=== PATIENT | male | born 1960 | race Caucasian/White ===

== ENCOUNTER 2017-07-20 17:43 | Observation (INO) | payer OTHER ==
--- NOTE | 2017-07-20 18:20 | ED PDOC ---
HPI: Chest Pain Time Seen by Provider: 07/20/17 18:17 Chief Complaint (Nursing): Chest Pain Chief Complaint (Provider): CHEST PAIN History Per: Patient (56 Y/O MALE H/O HLD HERE WITH COMPLAINT OF PALPITATIONS ASSOCIATED WITH CHEST PRESSURE TODAY 1 HOUR PRIOR TO ED ARRIVAL. PATIENT STATES HE WAS LEANING FORWARD WHEN HE NOTED PAIN IN LOWER BACK THAT CAUSED HIM TO FEEL NEAR SYNCOPAL. PATIENT SUBSEQUENTLY NOTED PALPITATIONS AND CHEST PRESSURE.) Past Medical History Reviewed: Historical Data, Nursing Documentation, Vital Signs Vital Signs: Last Vital Signs Temp 98.6 F 07/20/17 17:51 Pulse 78 07/20/17 17:51 Resp 18 07/20/17 17:51 BP 100/69 07/20/17 17:51 Pulse Ox 98 07/20/17 18:20 - Medical History PMH: Hypercholesterolemia, Hyperlipidemia - Family History Family History: States: Unknown Family Hx - Immunization History Hx Tetanus Toxoid Vaccination: No Hx Influenza Vaccination: No Hx Pneumococcal Vaccination: No - Home Medications Home Medications: Ambulatory Orders Medication Instructions Recorded Cyclobenzaprine [Cyclobenzaprine 10 mg PO TID PRN #15 tab 08/14/15 HCl] Ibuprofen 1 tab PO Q6H PRN #15 tablet 08/14/15 [id number] Ethyl Esters 1 GM 1 gm PO BID 08/14/15 [Lovaza] - Allergies Allergies/Adverse Reactions: Allergies Allergy/AdvReac Type Severity Reaction Status Date / Time No Known Allergies Allergy Verified 07/20/17 17:51 Review of Systems ROS Statement: Except As Marked, All Systems Reviewed And Found Negative Cardiovascular: Positive for: Chest Pain Physical Exam - Reviewed Nursing Documentation Reviewed: Yes Vital Signs Reviewed: Yes - Physical Exam Appears: Positive for: Well, Non-toxic, No Acute Distress Head Exam: Positive for: ATRAUMATIC, NORMAL INSPECTION, NORMOCEPHALIC Skin: Positive for: Normal Color, Warm, DRY Eye Exam: Positive for: EOMI, Normal appearance, PERRL ENT: Positive for: Normal ENT Inspection Neck: Positive for: Normal, Painless ROM Cardiovascular/Chest: Positive for: Regular Rate, Rhythm Respiratory: Positive for: CNT, Normal Breath Sounds Gastrointestinal/Abdominal: Positive for: Normal Exam, Soft Back: Positive for: Normal Inspection Extremity: Positive for: Normal ROM Neurologic/Psych: Positive for: Alert, Oriented - Laboratory Results Result Diagrams: 07/20/17 18:30 07/20/17 18:30 - ECG ECG Rhythm: Positive for: Sinus Rhythm (NSR 73 BPM NO ECTOPY NO ACUTE CHANGES) O2 Sat by Pulse Oximetry: 98 - Progress ED Course And Treament: PATIENT TOOK ASA 81 MG X 2 PRIOR TO ED ARRIVAL. 162 MG ASA ORDERED D/W DR. VILLA ADMIT TO TELE OBSERVATION Disposition - Disposition Forms: [employer] (Bengali)
[2017-07-20 18:46] LABS: BLOOD UREA NITROGEN 18 mg/dl (9-20); CALCIUM 9.1 mg/dL (8.4-10.2); GFR AFRICAN-AMERICAN > 60; GFR NON-AFRICAN AMERICAN > 60
[2017-07-20 18:53] LABS: BASO % 0.4 % (0.0-2.0); EOS # 0.2 K/uL (0.0-0.7); EOS % 2.1 % (0.0-4.0); HEMOGLOBIN 14.5 g/dL (12.0-18.0); LYMPH # 2.3 K/uL (1.0-4.3); LYMPH % 30.5 % (20.0-40.0); MEAN CELL VOLUME 82.7 fl (80.0-94.0); MEAN CORPUSCULAR HEMOGLOBIN 27.9 pg (27.0-31.0); MEAN CORPUSCULAR HGB CONC 33.7 g/dL (33.0-37.0); MEAN PLATELET VOLUME 7.2 fl (7.2-11.7); MONO # 0.6 K/uL (0.0-0.8); MONO % 8.3 % (0.0-10.0); NEUT # 4.4 K/uL (1.8-7.0); NEUT % 58.7 % (50.0-75.0); NRBC % 0.1 % (0.0-0.0); RBC 5.21 Mil/uL (4.40-5.90); RED CELL DISTRIBUTION WIDTH 14.9 % (11.5-14.5); WHITE BLOOD COUNT 7.5 K/uL (4.8-10.8)
[2017-07-21] MEDS: Omega-3-Acid Ethyl Esters 1 GM Cap PO SCH ×2 (08:22→16:28)
--- NOTE | 2017-07-21 09:06 | RAD ---
HISTORY: PALPITATIONS COMPARISON: No prior. FINDINGS: LUNGS: No active pulmonary disease. PLEURA: No significant pleural effusion identified, no pneumothorax apparent. CARDIOVASCULAR: Atherosclerotic aortic calcifications. Cardiomediastinal thin normal limits. OSSEOUS STRUCTURES: Degenerative changes. VISUALIZED UPPER ABDOMEN: Normal. OTHER FINDINGS: None. IMPRESSION: No active disease.
--- NOTE | 2017-07-21 10:16 | CARD ---
APPROVED REPORT EKG Measurement Heart [id number] <Conclusion> Normal sinus rhythm Normal ECG
--- NOTE | 2017-07-21 10:33 | CARD ---
APPROVED REPORT EKG Measurement Heart [id number] <Conclusion> Normal sinus rhythm Normal ECG
[2017-07-21 11:28] LABS: HDL CHOLESTEROL 20 MG/DL (30-70)
[2017-07-21 11:39] LABS: LDL CHOLESTEROL 118 mg/dL (0-129)
--- NOTE | 2017-07-21 12:38 | CP.PCM.HP ---
History of Present Illness - History of Present Illness History of Present Illness: CC: chest pain HPI: 56 y/o man w/ pmh of HLD presented to the Ed w/ chest pain. Patient reported midsternal chest pressure 1 hour prior to arrival in ED. Patient reports he had just finished a short walk with a friend when the chest pain started. Patient also reported associated palpitation and near syncope. Patient noted that near syncope occurred after leaning forward due to lower back pain. Patient reports this is the 4th incident regarding chest pain for which he was previously seen in [facility]. Patient reports stress test done 3 years ago which was normal. Patient denies headaches, SOB, abdominal pain, nausea, vomiting, diarrhea, dysuria, or fever. PMD: Dr. Edward PMH: HLD meds: see med list PSH: left arm and right wrist surgery Fam: denies SOC: denies smoking, alcohol, and drugs ROS: 12 points assessed and negative unless otherwise reported in HPI Present on Admission - Present on Admission Any Indicators Present on Admission: No History of DVT/PE: No History of Uncontrolled Diabetes: No Urinary Catheter: No Review of Systems - Review of Systems All systems: reviewed and no additional remarkable complaints except - Constitutional Constitutional: absent: Chills, Fever - EENT Eyes: absent: Change in Vision - Cardiovascular Cardiovascular: As Per HPI, Chest Pain, Palpitations - Respiratory Respiratory: absent: Cough, Dyspnea - Gastrointestinal Gastrointestinal: absent: Abdominal Pain, Diarrhea, Nausea, Vomiting - Genitourinary Genitourinary: absent: Dysuria - Integumentary Integumentary: absent: Rash Past Patient History - Infectious Disease Hx of Infectious Diseases: None - Past Medical History & Family History Past Medical History?: Yes - Past Social History Smoking Status: Never Smoked - CARDIAC Hx Hypercholesterolemia: Yes - MUSCULOSKELETAL/RHEUMATOLOGICAL Hx Falls: No - PSYCHIATRIC Hx Substance Use: No - SURGICAL HISTORY Hx Surgeries: Yes Other/Comment: left arm surgery and right wrist due to carpal tunnel. - ANESTHESIA Hx Anesthesia: Yes Hx Anesthesia Reactions: No Meds Allergies/Adverse Reactions: Allergies Allergy/AdvReac Type Severity Reaction Status Date / Time No Known Allergies Allergy Verified 07/20/17 17:51 Physical Exam - Constitutional Appears: Non-toxic, No Acute Distress - Head Exam Head Exam: ATRAUMATIC, NORMAL INSPECTION, NORMOCEPHALIC - Eye Exam Eye Exam: Normal appearance - ENT Exam ENT Exam: Mucous Membranes Moist - Neck Exam Neck exam: Positive for: Full Rom. Negative for: Tenderness - Respiratory Exam Respiratory Exam: Clear to Auscultation Bilateral. absent: Accessory Muscle Use , Decreased Breath Sounds, Rales, Rhonchi, Wheezes, Respiratory Distress - Cardiovascular Exam Cardiovascular Exam: REGULAR RHYTHM, RRR. absent: Tachycardia, Systolic Murmur - GI/Abdominal Exam GI & Abdominal Exam: Normal Bowel Sounds, Soft. absent: Distended, Tenderness - Extremities Exam Extremities exam: Positive for: normal inspection. Negative for: calf tenderness, pedal edema - Neurological Exam Neurological exam: Alert, Oriented x3 - Skin Skin Exam: Dry, Intact, Normal Color, Warm Results - Vital Signs Recent Vital Signs: Last Vital Signs Temp 97.5 F L 07/21/17 08:04 Pulse 67 07/21/17 08:04 Resp 18 07/21/17 08:04 BP 100/65 07/21/17 08:04 Pulse Ox 96 07/21/17 08:04 - Labs Result Diagrams: 07/20/17 18:30 07/20/17 18:30 Labs: Laboratory Results - last 24 hr 07/20/17 07/20/17 07/21/17 18:30 18:30 01:45 WBC 7.5 RBC 5.21 Hgb 14.5 Hct 43.1 MCV 82.7 MCH 27.9 MCHC 33.7 RDW 14.9 H Plt Count 213 MPV 7.2 Neut % (Auto) 58.7 Lymph % (Auto) 30.5 [place] % (Auto) 8.3 Eos % (Auto) 2.1 Baso % (Auto) 0.4 Neut # (Auto) 4.4 Lymph # (Auto) 2.3 [place] # (Auto) 0.6 Eos # (Auto) 0.2 Baso # (Auto) 0.0 Sodium 138 Potassium 4.2 Chloride 104 Carbon Dioxide 25 Anion Gap 13 BUN 18 Creatinine 1.0 Est GFR ( Amer) > 60 Est GFR (Non-Af Amer) > 60 Random Glucose 89 Calcium 9.1 Magnesium 1.8 Troponin I < 0.0120 < 0.0120 Triglycerides Cholesterol LDL Cholesterol Direct HDL Cholesterol 07/21/17 07/21/17 09:55 11:16 WBC RBC Hgb Hct MCV MCH MCHC RDW Plt Count MPV Neut % (Auto) Lymph % (Auto) [place] % (Auto) Eos % (Auto) Baso % (Auto) Neut # (Auto) Lymph # (Auto) [place] # (Auto) Eos # (Auto) Baso # (Auto) Sodium Potassium Chloride Carbon Dioxide Anion Gap BUN Creatinine Est GFR ( Amer) Est GFR (Non-Af Amer) Random Glucose Calcium Magnesium Troponin I < 0.0120 Triglycerides 240 H Cholesterol 190 LDL Cholesterol Direct 118 HDL Cholesterol 20 L Assessment & Plan (1) Acute chest pain Status: Acute (2) Hyperlipidemia Status: Chronic - Assessment and Plan (Free Text) Plan: c/w present management afebrile, non-tachycardic, normotensive troponin x3 negative EKG: NSR, no ST elevation/depression stress test (lexiscan) ordered f/u echo start ASA 81 mg PO daily start atorvastatin 20 mg PO daily c/w home medications prophylactic measures: DVT SCDs
[2017-07-21 16:37] VITALS: TEMP 98
--- NOTE | 2017-07-21 17:40 | CP.PCM.CON ---
History of Present Illness - History of Present Illness History of Present Illness: PT PRESENTS WITH SYMPTOMS OF PRESYNCOPE. PT STATES THAT AFTER STANDING UP SUDDENLY HE FEELS LIGHTHEADED, FLUSHED AND HAS PALPITATIONS. HIS SYMPTOMS DID OCCUR WITH SEXUAL ACTIVITY, HOWEVER PT DID TAKE 20MG CIALIS. ADDITIONALLY PT REPORTS SYMPTOMS WHEN HE FEELS HOT. PT DENIES CHEST PRESSURE, LOC, FEVER, CHILLS, SOB, N/V/D/C. NO ARRYTHMIAS ON TELE. ECHO REVEALS NML DIASTOLIC FUNCTION AND NML SYSTOLIC FUNCTION. Past Patient History - Infectious Disease Hx of Infectious Diseases: None - Past Medical History & Family History Past Medical History?: Yes - Past Social History Smoking Status: Never Smoked - CARDIAC Hx Hypercholesterolemia: Yes - MUSCULOSKELETAL/RHEUMATOLOGICAL Hx Falls: No - PSYCHIATRIC Hx Substance Use: No - SURGICAL HISTORY Hx Surgeries: Yes Other/Comment: left arm surgery and right wrist due to carpal tunnel. - ANESTHESIA Hx Anesthesia: Yes Hx Anesthesia Reactions: No Meds Allergies/Adverse Reactions: Allergies Allergy/AdvReac Type Severity Reaction Status Date / Time No Known Allergies Allergy Verified 07/20/17 17:51 - Medications Medications: Current Medications Aspirin (Aspirin Chewable) 81 mg PO DAILY [facility] Last Admin: 07/21/17 08:22 Dose: 81 mg Atorvastatin Calcium (Lipitor) 20 mg PO DAILY [facility] Last Admin: 07/21/17 16:31 Dose: Not Given Fenofibrate (Tricor) 48 mg PO DAILY [facility] Last Admin: 07/21/17 08:22 Dose: 48 mg [id number] Ethyl Esters (Lovaza) 1 gm PO BID [facility] Last Admin: 07/21/17 16:28 Dose: 1 gm Results - Vital Signs Recent Vital Signs: Last Vital Signs Temp 98 F 07/21/17 16:36 Pulse 65 07/21/17 16:36 Resp 16 07/21/17 16:36 BP 118/78 07/21/17 16:36 Pulse Ox 96 07/21/17 16:36 - Labs Result Diagrams: 07/20/17 18:30 07/20/17 18:30 Labs: Laboratory Results - last 24 hr 07/20/17 07/20/17 07/21/17 18:30 18:30 01:45 WBC 7.5 RBC 5.21 Hgb 14.5 Hct 43.1 MCV 82.7 MCH 27.9 MCHC 33.7 RDW 14.9 H Plt Count 213 MPV 7.2 Neut % (Auto) 58.7 Lymph % (Auto) 30.5 [place] % (Auto) 8.3 Eos % (Auto) 2.1 Baso % (Auto) 0.4 Neut # (Auto) 4.4 Lymph # (Auto) 2.3 [place] # (Auto) 0.6 Eos # (Auto) 0.2 Baso # (Auto) 0.0 Sodium 138 Potassium 4.2 Chloride 104 Carbon Dioxide 25 Anion Gap 13 BUN 18 Creatinine 1.0 Est GFR ( Amer) > 60 Est GFR (Non-Af Amer) > 60 Random Glucose 89 Calcium 9.1 Magnesium 1.8 Troponin I < 0.0120 < 0.0120 Triglycerides Cholesterol LDL Cholesterol Direct HDL Cholesterol 07/21/17 07/21/17 09:55 11:16 WBC RBC Hgb Hct MCV MCH MCHC RDW Plt Count MPV Neut % (Auto) Lymph % (Auto) [place] % (Auto) Eos % (Auto) Baso % (Auto) Neut # (Auto) Lymph # (Auto) [place] # (Auto) Eos # (Auto) Baso # (Auto) Sodium Potassium Chloride Carbon Dioxide Anion Gap BUN Creatinine Est GFR ( Amer) Est GFR (Non-Af Amer) Random Glucose Calcium Magnesium Troponin I < 0.0120 Triglycerides 240 H Cholesterol 190 LDL Cholesterol Direct 118 HDL Cholesterol 20 L Assessment & Plan (1) Vasovagal near syncope Status: Acute (2) Meralgia paresthetica, bilateral lower limbs Status: Acute (3) Hyperlipidemia Status: Chronic - Assessment and Plan (Free Text) Plan: WILL GIVE 1L NS BOLUS. PT AMBULATED WITHOUT ANY ARRYTHMIAS ON TELE. PT MAY BE D/C TO HOME. 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 MAY NEED TILT TABLE. AVOID CIALIS. INCREASE SALT IN DIET.
[2017-07-21] MEDS ORDERED: Sodium Chloride 0.9% 1,000 ML IV SCH (18:30)
[2017-07-21 22:22] VITALS: BP 116/74; PULSE 67; RESP 18; O2SAT 97
== END 2017-07-21 22:15 | disposition home or self-care (01) ==
LOC: H.ER 17:43 → H.ERHOLD 19:26 → H.TEL 23:49
PROVIDERS: ADMIT Family Medicine; ATTEND Family Medicine
DX: R55 Syncope and collapse (principal); G57.13 Meralgia paresthetica, bilateral lower limbs; E78.5 Hyperlipidemia, unspecified; E78.00 Pure hypercholesterolemia, unspecified
CPT/HCPCS: 36415; 71045; 80048; 80061; 83735; 84484; 85025; 93005; 99282; G0378; J7030